=== PATIENT | male | born 1970 | race Caucasian/White ===

== ENCOUNTER → 2019-06-16 | Day surgery (SDC) | payer BC ==
[~2019-06-16] MED LIST: Albuterol 0.083% 2.5 MG/3 ML Neb Soln NEB ONE; Lactated Ringers 1,000 ML IV SCH; Lidocaine 1% 4 ML ONE; Lidocaine 1%/Sod Bicarbonate in NS 8.4% 1 ML Syringe IDERM PRN; Midazolam 1 MG/ML 2 ML SDV ONE; Propofol 200 MG/20 ML SDV ONE; Sodium Chloride 0.9% 10 ML Syringe FLUSH PRN; fentaNYL 100 MCG/2 ML SDV ONE
--- NOTE | 2019-06-16 07:31 | PCM.PREANE ---
Preanesthetic Assessment - Anesthesia/Transfusion/Family Hx Anesthesia History: Prior Anesthesia Without Reaction Family History of Anesthesia Reaction: No Transfusion History: No Prior Transfusion(s) - Review of Systems General: No Symptoms Pulmonary: No Symptoms Cardiovascular: No Symptoms Gastrointestinal: No Symptoms Neurological: Numbness (in hands) Other: Reports: None - Physical Assessment NPO Status Date: 06/15/19 NPO Status Time: 20:00 Vital Signs: Last Vital Signs Temp 36.6 C 06/16/19 07:02 Pulse 86 06/16/19 07:02 Resp 16 06/16/19 07:02 BP 146/94 H 06/16/19 07:02 Pulse Ox 97 06/16/19 07:02 Height: 1.83 m Weight: 138.346 kg ASA Class: 2 Mental Status: Alert & Oriented x3 Airway Class: Mallampati = 2 Dentition: Reports: Normal Dentition, Kief(s) Thyro-Mental Finger Breadths: 2 Mouth Opening Finger Breadths: 2 ROM/Head Extension: Full Lungs: Clear to Auscultation, Normal Respiratory Effort Cardiovascular: Regular Rate, Regular Rhythm - Imaging/EKG Impressions: on chart - Allergies Allergies/Adverse Reactions: Allergies Allergy/AdvReac Type Severity Reaction Status Date / Time No Known Allergies Allergy Verified 06/16/19 07:05 - Blood Blood Available: No Product(s) Available: None - Anesthesia Plan Pre-Op Medication Ordered: None - Acknowledgements Anesthesia Type Planned: MAC Pt an Appropriate Candidate for the Planned Anesthesia: Yes Alternatives and Risks of Anesthesia Discussed w Pt/Guardian: Yes Pt/Guardian Understands and Agrees with Anesthesia Plan: Yes PreAnesthesia Questionnaire Cardiovascular History: Reports: CAD, High Cholesterol, Hypertension, Other ( See Below) Other Cardiovascular History: edema Respiratory History: Reports: Asthma, Sleep Apnea, Other (See Below) Other Respiratory History: pulmonary sarcodosis Gastrointestinal History: Reports: None, GERD Genitourinary History: Reports: None OTR DRIVER History: Reports: None Musculoskeletal History: Reports: None Neurological History: Reports: None Psychiatric History: Reports: None Endocrine/Metabolic History: Reports: Obesity/BMI 30+ 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 Hematologic History: Reports: None Immunologic History: Reports: None Oncologic (Cancer) History: Reports: None Dermatologic History: Reports: Other (See Below) Other Dermatologic History: stasis dermatitis, foreign body removal - Past Surgical History Head Surgeries/Procedures: Reports: None HEENT Surgical History: Reports: LASIK Cardiovascular Surgical History: Reports: None GI Surgical History: Reports: Hernia Repair/Other Female Surgical History: Reports: None Male Surgical History: Reports: None Endocrine Surgical History: Reports: None Neurological Surgical History: Reports: None Musculoskeletal Surgical History: Reports: Other (See Below) Other Musculoskeletal Surgeries/Procedures:: hand surgery, knee surgery Oncologic Surgical History: Reports: None - SUBSTANCE USE Smoking Status *Q: Former Smoker Tobacco Use Within Last Twelve Months: No Second Hand Smoke Exposure: Yes Days Per Week of Alcohol Use: 3 Number of Drinks Per Day: 1 Total Drinks Per Week: 3 Recreational Drug Use History: No - HOME MEDS Home Medications: Home Meds Aspirin [[place] Aspirin] 81 mg PO DAILY 06/15/19 [History] Lisinopril/Hydrochlorothiazide [Lisinopril-Hctz 20-25 mg Tab] 1 tab PO DAILY 09/21 [History] Pravastatin Sodium [Pravastatin (Pravachol)] 40 mg PO DAILY 06/15/19 [History] - CURRENT (IN HOUSE) MEDS Current Meds: Current Medications Lactated Ringer's (Ringers, Lactated) 1,000 mls @ 125 mls/hr IV ASDIRECTED MAKENNA Last Admin: 06/16/19 07:04 Dose: 125 mls/hr Lidocaine/Sodium Bicarbonate (Buffered Lidocaine 1% In Ns 8.4%) 0.25 ml IDERM ONETIME PRN PRN Reason: Prior to IV Start Last Admin: 06/16/19 07:04 Dose: 0.25 ml Sodium Chloride (Saline Flush) 10 ml FLUSH ASDIRECTED PRN PRN Reason: Keep Vein Open Discontinued Medications Albuterol (Proventil Neb Soln) 2.5 mg NEB ONETIME ONE Stop: 06/16/19 08:16 Albuterol (Proventil Neb Soln) 2.5 mg NEB ONETIME ONE Stop: 06/16/19 06:16 Last Admin: 06/16/19 07:18 Dose: 2.5 mg
--- NOTE | 2019-06-16 08:03 | PCM.HP.2 ---
H&P History of Present Illness - General Date of Service: 06/16/19 Source of Information: Patient History Limitations: Reports: No Limitations - History of Present Illness Initial Comments - Free Text/Narative: 49 year male here for screening colonoscopy, no change in bowel habits, no family history of colon cancer. he is able to perform 4 mets of activity without chest pain or dyspnea. no history of cad, hypertension is controlled. - Related Data Allergies/Adverse Reactions: Allergies Allergy/AdvReac Type Severity Reaction Status Date / Time No Known Allergies Allergy Verified 06/16/19 07:05 Home Medications: Home Meds Aspirin [[place] Aspirin] 81 mg PO DAILY 06/15/19 [History] Lisinopril/Hydrochlorothiazide [Lisinopril-Hctz 20-25 mg Tab] 1 tab PO DAILY 09/21 [History] Pravastatin Sodium [Pravastatin (Pravachol)] 40 mg PO DAILY 06/15/19 [History] Past Medical History Cardiovascular History: Reports: CAD, High Cholesterol, Hypertension, Other ( See Below) Other Cardiovascular History: edema Respiratory History: Reports: Asthma, Sleep Apnea, Other (See Below) Other Respiratory History: pulmonary sarcodosis Gastrointestinal History: Reports: None, GERD Genitourinary History: Reports: None BELLHOP History: Reports: None Musculoskeletal History: Reports: None Neurological History: Reports: None Psychiatric History: Reports: None Endocrine/Metabolic History: Reports: Obesity/BMI 30+ 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 Hematologic History: Reports: None Immunologic History: Reports: None Oncologic (Cancer) History: Reports: None Dermatologic History: Reports: Other (See Below) Other Dermatologic History: stasis dermatitis, foreign body removal - Past Surgical History Head Surgeries/Procedures: Reports: None HEENT Surgical History: Reports: WENDY Cardiovascular Surgical History: Reports: None GI Surgical History: Reports: Hernia Repair/Other Female Surgical History: Reports: None Male Surgical History: Reports: None Endocrine Surgical History: Reports: None Neurological Surgical History: Reports: None Musculoskeletal Surgical History: Reports: Other (See Below) Other Musculoskeletal Surgeries/Procedures:: hand surgery, knee surgery Oncologic Surgical History: Reports: None Social & Family History - Tobacco Use Smoking Status *Q: Former Smoker Used Tobacco, but Quit: Yes Month/Year Tobacco Last Used: 1994 Second Hand Smoke Exposure: Yes - Caffeine Use Caffeine Use: Reports: Coffee, Soda Other Caffeine Use: rarely - Alcohol Use Days Per Week of Alcohol Use: 3 Number of Drinks Per Day: 1 Total Drinks Per Week: 3 - Recreational Drug Use Recreational Drug Use: No Drug Use in Last 12 Months: No H&P Review of Systems - Review of Systems: Review Of Systems: See Below General: Reports: No Symptoms Pulmonary: Reports: No Symptoms Cardiovascular: Reports: No Symptoms Gastrointestinal: Reports: No Symptoms Genitourinary: Reports: No Symptoms Musculoskeletal: Reports: No Symptoms Exam - Exam Exam: See Below - Vital Signs Vital Signs: Last Vital Signs Temp 36.6 C 06/16/19 07:02 Pulse 86 06/16/19 07:02 Resp 16 06/16/19 07:02 BP 146/94 H 06/16/19 07:02 Pulse Ox 98 06/16/19 07:20 Weight: 138.346 kg - Exam General: Alert, Oriented Lungs: Clear to Auscultation, Normal Respiratory Effort Cardiovascular: Regular Rate, Regular Rhythm GI/Abdominal Exam: Normal Bowel Sounds, Soft, Non-Tender - Problem List (1) Colon cancer screening SNOMED Code(s): 965399281, [id number] ICD Code: Z12.11 - ENCOUNTER FOR SCREENING FOR MALIGNANT NEOPLASM OF COLON Status: Acute Current Visit: Yes Problem List Initiated/Reviewed/Updated: Yes Orders Last 24hrs: Active Orders 24 hr Category Date Time Status EKG Documentation Completion [RC] ROUTINE Care 06/16/19 00:01 Active Peripheral IV Care [RC] . DIRECTED Care 06/16/19 07:00 Active RT Aerosol Therapy [RC] ASDIRECTED Care 06/15/19 08:16 Active Verify Patient Consent Obtain [RC] ASDIRECTED Care 06/16/19 07:00 Active Lactated Ringers [Ringers, Lactated] 1,000 ml Med 06/16/19 07:00 Active IV ASDIRECTED Lidocaine 1%/Sod Bicarbonate [Buffered Lidocaine 1% in Med 06/16/19 07:00 Active NS 8.4%] 0.25 ml IDERM ONETIME PRN Sodium Chloride 0.9% [Saline Flush] Med 06/16/19 07:00 Active 10 ml FLUSH ASDIRECTED PRN Medication Administration Instruction [OM.PC] Routine Oth 06/16/19 07:00 Ordered Peripheral IV Insertion Adult [OM.PC] Routine Oth 06/16/19 07:00 Ordered Medication Orders Lactated Ringer's (Ringers, Lactated) 1,000 mls @ 125 mls/hr IV ASDIRECTED MAKENNA Last Admin: 06/16/19 07:04 Dose: 125 mls/hr Lidocaine/Sodium Bicarbonate (Buffered Lidocaine 1% In Ns 8.4%) 0.25 ml IDERM ONETIME PRN PRN Reason: Prior to IV Start Last Admin: 06/16/19 07:04 Dose: 0.25 ml Sodium Chloride (Saline Flush) 10 ml FLUSH ASDIRECTED PRN PRN Reason: Keep Vein Open Assessment/Plan Comment:: 49 year old male here for screening colonoscopy, benefits/risks discussed, proceed with procedure.
--- NOTE | 2019-06-16 08:38 | PCM.OPNOTE ---
- General Post-Op/Procedure Note Date of Surgery/Procedure: 06/16/19 Operative Procedure(s): Colonoscopy with cold forceps biopsy Findings: 2 mm rectal polyp Pre Op Diagnosis: Age related colon cancer screening Post-Op Diagnosis: 2 mm rectal polyp Anesthesia Technique: MAC Primary Surgeon: Isidro Doe Anesthesia Provider: Paul Gonzales EBL in mLs: 5 Complications: None Condition: Good Free Text/Narrative:: After the patient gave verbal and written consent he was placed on blood pressure and pulse ox monitoring. He was given iv sedation which he tolerated well. The olympus colonoscope was inserted per rectum and advanced to the cecum without difficulty. The ileocecal valve and appendiceal orfice were imaged documenting cecal intubation. The scope was slowly withdrawn, the prep was good , the views were good. A 2 mm rectal polyp was noted and removed with cold forceps biopsy. There was good hemostasis. The scope was retroflexed and then removed. The patient tolerated the procedure well with no complications, he left the OR in good condition.
--- NOTE | 2019-06-16 08:40 | PCM48HPAN ---
Post Anesthesia Note - EVALUATION WITHIN 48HRS OF ANESTHETIC Vital Signs in Normal Range: Yes Patient Participated in Evaluation: Yes Respiratory Function Stable: Yes Airway Patent: Yes Cardiovascular Function Stable: Yes Hydration Status Stable: Yes Pain Control Satisfactory: Yes Nausea and Vomiting Control Satisfactory: Yes Mental Status Recovered: Yes Vital Signs: Last Vital Signs Temp 36.6 C 06/16/19 07:02 Pulse 86 06/16/19 07:02 Resp 16 06/16/19 07:02 BP 146/94 H 06/16/19 07:02 Pulse Ox 98 06/16/19 07:20 - COMMENTS/OBSERVATIONS Free Text/Narrative:: no anesthesia complications noted
[2019-06-16 09:02] VITALS: BP 124/87; PULSE 87
== END | disposition home or self-care (01) ==
LOC: JD.SDS 06:22
PROVIDERS: ATTEND Family Medicine
DX: Z12.11 Encounter for screening for malignant neoplasm of colon (principal); D12.8 Benign neoplasm of rectum; I25.10 Atherosclerotic heart disease of native coronary artery without angina pectoris; E78.00 Pure hypercholesterolemia, unspecified; E66.9 Obesity, unspecified; J45.909 Unspecified asthma, uncomplicated; D86.0 Sarcoidosis of lung; K43.9 Ventral hernia without obstruction or gangrene; G47.33 Obstructive sleep apnea (adult) (pediatric); Z87.891 Personal history of nicotine dependence; Z79.82 Long term (current) use of aspirin; Z79.899 Other long term (current) drug therapy; Z68.41 Body mass index [BMI] 40.0-44.9, adult
CPT/HCPCS: 45380; 93005; 94640; J2001; J2250; J2704; J3010; J7120; 00812